=== PATIENT | female | born 1945 | race Caucasian/White ===

== ENCOUNTER → 2023-02-28 | Outpatient (CLI) | payer MEDICARE, OTHER ==
[2023-02-28 17:21] LABS: MEAN CELL VOLUME 86 fl (80.0-100.0); MEAN CORPUSCULAR HGB CONC 33 g/dl (33.0-37.0); MEAN PLATELET VOLUME 9.2 fl (7.4-10.4); PLATELET COUNT 272 K/mm3 (130-400); RED BLOOD COUNT 3.23 M/mm3 (4.10-5.30); REDCELL DISTRIBUTION WIDTH-CV 17.3 % (11.5-14.5)
[2023-02-28 17:22] LABS: HEMATOCRIT 27.8 % (37.0-47.0); HEMOGLOBIN 9.2 g/dl (12.5-16.0); MEAN CORPUSCULAR HEMOGLOBIN 28 pg (27-31)
[2023-02-28 17:38] LABS: ALBUMIN 3.6 gm/dL (3.4-4.8); BILIRUBIN,TOTAL 1.6 mg/dL (0.2-1.2); CALCIUM 9.4 mg/dL (8.4-10.2); CREATININE, serum 0.78 mg/dL (0.57-1.11); POTASSIUM 4.5 mmol/L (3.5-4.5); TOTAL PROTEIN 6.5 gm/dL (6.2-8.1)
== END ==
LOC: COL.LAB 16:57
PROVIDERS: Surgery
DX: I25.10 Atherosclerotic heart disease of native coronary artery without angina pectoris (principal); R11.0 Nausea; R60.9 Edema, unspecified

== ENCOUNTER 2023-03-04 15:47 | Outpatient (RCR) | payer MEDICARE, OTHER | END 2023-03-09 | disposition home or self-care (01) | LOC: COL.CR | DX: Z48.812 Encounter for surgical aftercare following surgery on the circulatory system (principal); Z95.1 Presence of aortocoronary bypass graft ==

== ENCOUNTER 2023-03-30 16:14 | Outpatient (RCR) | payer MEDICARE, OTHER ==
[~2023-03-30 16:14] MED LIST: ASPIRIN 81M81 MG/TA2 PO; DESYREL 50MG50 MG PO; ELIQUIS 5MG PO; GLUCOPHAGE1000 MG PO; LIPITOR 80MG80 MG PO; MELATONIN3 M1 PO; MIRALAX PA17 GM/Dose PO; MULTI VITAMINS1 TAB PO; PACERONE200 MG PO; PLAVIX 75MG TAB75 MG PO; THE MEDICINE S200 M2 PO; TOPROL XL 25MG25 MG PO
== END 2023-04-07 | disposition home or self-care (01) ==
LOC: COL.CR
DX: Z48.812 Encounter for surgical aftercare following surgery on the circulatory system (principal); Z95.1 Presence of aortocoronary bypass graft

== ENCOUNTER → 2023-05-02 | Outpatient (CLI) | payer MEDICARE, OTHER ==
[2023-05-02 13:59] LABS: CALCIUM 8.8 mg/dL (8.4-10.2); CREATININE, serum 0.76 mg/dL (0.57-1.11); POTASSIUM 4.6 mmol/L (3.5-4.5)
== END ==
LOC: COL.LAB 12:23
PROVIDERS: Surgery
DX: J90 Pleural effusion, not elsewhere classified (principal)

== ENCOUNTER 2023-06-06 16:06 | Outpatient (RCR) | payer MEDICARE, OTHER | END 2023-06-07 | disposition home or self-care (01) | LOC: COL.CR | DX: Z48.812 Encounter for surgical aftercare following surgery on the circulatory system (principal); Z95.1 Presence of aortocoronary bypass graft ==